=== PATIENT | female | born 1995 | race Two or more races ===

== ENCOUNTER 2023-05-31 16:14 | Inpatient (IN) | payer MEDICAID, OTHER ==
[~2023-05-31] VITALS: Ht 170.2 cm; Wt 65.0 kg
[2023-05-31] MEDS ORDERED: SODIUM CHLORIDE 0.9% 1,000 ML IV ONE (16:30)
[2023-05-31] MEDS ORDERED: HYDROmorphone HCL 2 MG/ML VL/or syr IV ONE ×2 (16:30→18:15)
[2023-05-31] MEDS ORDERED: InsuLIN R (HUMAN) 100 UNITS in SODIUM CHL 0.9% 99 ML IV SCH (16:30)
[2023-05-31] MEDS ORDERED: PANTOPRAZOLE 40 MG/10 ML VIAL INJ IV ONE (16:30)
[2023-05-31] MEDS ORDERED: DEXTROSE (50%) 50ML SYRG IV PRN ×2 (16:30→21:15)
[2023-05-31] MEDS ORDERED: INSULIN LANTUS (GLARGINE) 1 /0.01ml (100units/ml) SC ONE (16:30)
[2023-05-31] MEDS ORDERED: PROCHLORPERAZINE EDISYLATE 5 MG/ML 2ML VIAL IV ONE (16:30)
[2023-05-31 17:18] LABS: Urine Bacteria NONE SEEN /hpf (None Seen); Urine Blood Negative /uL (Negative); Urine Clarity Clear (Clear); Urine Color Colorless (Yellow); Urine Protein, UAD Negative (Negative); Urine Specific Gravity 1.032 (1.001-1.035); Urine Urobilinogen Normal (Negative); Urine WBC <1 /hpf (0 - 5)
[2023-05-31 17:27] LABS: Amphetamine Screen, Urine Neg (NEGATIVE); Barbiturate Scree,Urine Neg (NEGATIVE); Benzodiazephine Screen, Urine Neg (NEGATIVE); Cannabinoid Screen, Urine Pos (NEGATIVE); Cocaine Screen, Urine Neg (NEGATIVE); Opiate Scree,Urine Neg (NEGATIVE); Phencyclidine Screen, Urine Neg (NEGATIVE)
[2023-05-31 18:11] LABS: Eosinophils # (auto) 0 10 ^3/uL (0-0.8); Red Cell Distribution Width 14.5 % (11.8-14.3)
[2023-05-31 18:12] LABS: Basophils # (auto) 0 10 ^3/uL (0-0.2); Basophils % (auto) 0.2 % (0.0-2.0); Hematocrit 34.6 % (36.0-46.0); Hemoglobin 11.3 g/dL (12.2-16.2); Lymphocytes # (auto) 0.9 10 ^3/uL (0.4-5.4); Lymphocytes % (auto) 9.8 % (10.0-50.0); Mean Corpuscular Hemoglobin 26.3 pg (28.0-32.0); Mean Corpuscular Hgb Conc. 32.7 g/dL (32.0-36.0); Mean Corpuscular Volume 80.5 fL (80.0-100.0); Monocytes # (auto) 0.2 10 ^3/uL (0-1.3); Monocytes % (auto) 2.2 % (0.0-12.0); Neutrophils % (auto) 87.8 % (37.0-80.0); White Blood Cell 9.1 10^3/uL (4.4-10.8)
[2023-05-31] MEDS ORDERED: diphenhdrAMINE HCL 50 MG/1 ML VL IV ONE (18:15)
[2023-05-31 18:27] LABS: Alanine Aminotransferase 10 U/L (7-40); Albumin 4.4 g/dL (3.2-4.8); Alkaline Phosphatase 105 U/L (46-116); Anion Gap 10.3 (5-15); Aspartate Aminotransferase < 8 U/L (13-40); BUN/Creatinine Ratio 12.5 (10.0-20.0); Blood Urea Nitrogen 8 mg/dL (9-23); Calcium 8.8 mg/dL (8.7-10.4); Carbon Dioxide 21.7 mmol/L (20-30); Chloride 100 mmol/L (98-107); Glucose 358 mg/dL (74-106); Potassium 3.7 mmol/L (3.5-5.1); Sodium 132 mmol/L (136-145)
[2023-05-31 18:28] LABS: Bilirubin, Total 0.8 mg/dL (0.2-1.0); Total Protein 7.1 g/dL (5.7-8.2)
[2023-05-31] MEDS: ACCU-CHEK COMFORT CURVE STRIP VI SCH ×3 (18:32→19:37)
[2023-05-31 18:37] LABS: Base Excess -5.4 mmol/L (-2.0-2.0)
[2023-05-31 18:41] VITALS: PULSE 98; RESP 20; O2SAT 100
[2023-05-31 19:30] VITALS: PULSE 85; RESP 20; O2SAT 100
[2023-05-31 22:05] VITALS: PULSE 90; RESP 21; O2SAT 95
[2023-05-31] MEDS: METOCLOPRAMIDE HCL 5MG/ml INJ 2ml VIAL IV SCH (22:07)
[2023-05-31] MEDS: MORPHINE SULFATE INJ 2 MG/ml SYRG IV PRN (22:21)
[2023-06-01] VITALS (8 sets, daily range): BP systolic 105–124; BP diastolic 61–81; PULSE 79–122; RESP 16–22; TEMP 97.4–98.6; O2SAT 96–100
[2023-06-01] MEDS: ACCU-CHEK COMFORT CURVE STRIP VI SCH ×7 (01:21→23:47)
[2023-06-01] MEDS: InsuLIN REG 1unit/0.01ml Soln (100units/ml) SC SCH ×7 (01:24→23:47)
[2023-06-01] MEDS ORDERED: KETOROLAC TROMETH 30 MG/ML 1ML VIAL IV ONE (02:15)
[2023-06-01] MEDS: MORPHINE SULFATE INJ 2 MG/ml SYRG IV PRN ×2 (02:24→09:02)
[2023-06-01] MEDS: METOCLOPRAMIDE HCL 5MG/ml INJ 2ml VIAL IV SCH ×3 (05:16→22:18)
[2023-06-01 06:28] LABS: Basophils # (auto) 0 10 ^3/uL (0-0.2); Basophils % (auto) 0.4 % (0.0-2.0); Eosinophils # (auto) 0 10 ^3/uL (0-0.8); Eosinophils % (auto) 0.4 % (0.0-7.0); Hematocrit 36.8 % (36.0-46.0); Hemoglobin 12.3 g/dL (12.2-16.2); Lymphocytes # (auto) 3.8 10 ^3/uL (0.4-5.4); Lymphocytes % (auto) 40.2 % (10.0-50.0); Mean Corpuscular Hemoglobin 26.3 pg (28.0-32.0); Mean Corpuscular Hgb Conc. 33.5 g/dL (32.0-36.0); Mean Corpuscular Volume 78.7 fL (80.0-100.0); Monocytes # (auto) 0.6 10 ^3/uL (0-1.3); Monocytes % (auto) 6.7 % (0.0-12.0); Neutrophils # (auto) 4.9 10 ^3/uL (1.6-8.6); Neutrophils % (auto) 52.3 % (37.0-80.0); Nucleated Red Blood Cells % 0.1 %; Red Blood Cells 4.67 10^6/uL (4.0-5.20); Red Cell Distribution Width 14.7 % (11.8-14.3); White Blood Cell 9.4 10^3/uL (4.4-10.8)
[2023-06-01 06:49] LABS: Albumin 4.2 g/dL (3.2-4.8); Alkaline Phosphatase 98 U/L (46-116); Anion Gap 7.5 (5-15); Aspartate Aminotransferase < 8 U/L (13-40); BUN/Creatinine Ratio 8.6 (10.0-20.0); Blood Urea Nitrogen 5 mg/dL (9-23); Calcium 9.3 mg/dL (8.7-10.4); Carbon Dioxide 24.5 mmol/L (20-30); Chloride 104 mmol/L (98-107); Glucose 148 mg/dL (74-106); Potassium 3.5 mmol/L (3.5-5.1); Sodium 136 mmol/L (136-145)
[2023-06-01 06:50] LABS: Alanine Aminotransferase < 9 U/L (7-40); Bilirubin, Total 0.6 mg/dL (0.2-1.0); Total Protein 6.9 g/dL (5.7-8.2)
[2023-06-01] MEDS: PANTOPRAZOLE 40 MG/10 ML VIAL INJ IV SCH (09:01)
[2023-06-01] MEDS ORDERED: INSULIN LANTUS (GLARGINE) 1 /0.01ml (100units/ml) SC SCH (10:00)
[2023-06-01 11:19] LABS: Hepatitis B Surface Antigen Negative (Negative)
[2023-06-01 11:41] LABS: Hepatitis C Antibody Negative (Negative)
[2023-06-01] MEDS ORDERED: diphenhdrAMINE HCL 50 MG/1 ML VL IM ONE (12:45)
[2023-06-01] MEDS ORDERED: RIVAROXABAN 15 MG TAB PO SCH (18:00)
[2023-06-01] MEDS ORDERED: diphenhdrAMINE HCL 25 MG CAP PO ONE (23:00)
[2023-06-02] MEDS: InsuLIN REG 1unit/0.01ml Soln (100units/ml) SC SCH ×4 (04:00→17:00)
[2023-06-02] MEDS: ACCU-CHEK COMFORT CURVE STRIP VI SCH ×4 (04:16→17:00)
[2023-06-02 05:00] VITALS: BP 112/69; PULSE 63; RESP 18; TEMP 98.1; O2SAT 97
[2023-06-02] MEDS: MORPHINE SULFATE INJ 2 MG/ml SYRG IV PRN ×2 (05:18→09:13)
[2023-06-02] MEDS: ONDANSETRON HCL 4 MG/2 ML VIAL IV PRN ×2 (05:20→09:12)
[2023-06-02] MEDS: METOCLOPRAMIDE HCL 5MG/ml INJ 2ml VIAL IV SCH ×2 (05:52→14:00)
[2023-06-02] MEDS: PANTOPRAZOLE 40 MG/10 ML VIAL INJ IV SCH (07:33)
[2023-06-02 07:48] VITALS: RESP 20
[2023-06-02 08:39] VITALS: BP 148/93; PULSE 125; RESP 20; TEMP 97.6; O2SAT 97
[2023-06-02] MEDS ORDERED: METO-281 PO (10:16)
[2023-06-02 11:35] LABS: Basophils # (auto) 0 10 ^3/uL (0-0.2); Eosinophils # (auto) 0 10 ^3/uL (0-0.8); Hemoglobin 11.8 g/dL (12.2-16.2); Lymphocytes # (auto) 1.6 10 ^3/uL (0.4-5.4); Monocytes # (auto) 0.4 10 ^3/uL (0-1.3); White Blood Cell 8.6 10^3/uL (4.4-10.8)
[2023-06-02 11:36] LABS: Basophils % (auto) 0.1 % (0.0-2.0); Hematocrit 36.4 % (36.0-46.0); Lymphocytes % (auto) 18.5 % (10.0-50.0); Mean Corpuscular Hemoglobin 25.7 pg (28.0-32.0); Mean Corpuscular Hgb Conc. 32.3 g/dL (32.0-36.0); Mean Corpuscular Volume 79.6 fL (80.0-100.0); Neutrophils # (auto) 6.6 10 ^3/uL (1.6-8.6); Neutrophils % (auto) 76.4 % (37.0-80.0); Red Blood Cells 4.57 10^6/uL (4.0-5.20); Red Cell Distribution Width 14.5 % (11.8-14.3)
[2023-06-02 11:56] LABS: Anion Gap 11.4 (5-15); Calcium 8.9 mg/dL (8.5-10.1); Carbon Dioxide 21.6 mmol/L (20-30); Chloride 102 mmol/L (98-107); Potassium 3.2 mmol/L (3.5-5.1); Sodium 135 mmol/L (136-145)
[2023-06-02 12:02] LABS: Blood Urea Nitrogen 7 mg/dL (9-23); Glucose 128 mg/dL (74-106)
[2023-06-02 12:03] LABS: BUN/Creatinine Ratio 11.1 (10.0-20.0)
[2023-06-02 12:57] VITALS: BP 158/89; PULSE 116; RESP 20; TEMP 98; O2SAT 100
[2023-06-02] MEDS ORDERED: INSLISPI SC (12:59)
[2023-06-02 16:58] VITALS: BP 129/93; PULSE 118; RESP 21; TEMP 97.6; O2SAT 100
== END 2023-06-02 18:24 | disposition home or self-care (01) | DRG 48 ==
LOC: ER 16:14 → EDBD 16:14 → OVERFLOW 21:08 → WEST WING 23:49
PROVIDERS: ADMIT Internal Medicine Pulmonary Disease
DX: E10.43 Type 1 diabetes mellitus with diabetic autonomic (poly)neuropathy (principal); E10.65 Type 1 diabetes mellitus with hyperglycemia; K31.84 Gastroparesis; F12.90 Cannabis use, unspecified, uncomplicated; F19.10 Other psychoactive substance abuse, uncomplicated; R11.10 Vomiting, unspecified
CPT/HCPCS: 36415; 76705; 80048; 80053; 80307; 81001; 82010; 82962; 83036; 85025; 86803; 87340; 96365; 96366; 96375; C9113; G0378; J1815; J1885; J2405

== ENCOUNTER 2023-06-27 14:10 | Inpatient (IN) | payer MEDICAID ==
[~2023-06-27] VITALS: Ht 167.6 cm; Wt 68.6 kg
[~2023-06-27 14:10] MED LIST: INSLISPI SC; METO-281 PO
[2023-06-27] MEDS ORDERED: PROMETHAZINE HCL 25 MG/ML 1ML IV ONE (14:30)
[2023-06-27] MEDS ORDERED: SODIUM CHLORIDE 0.9% 1,000 ML IV ONE ×2 (14:30)
[2023-06-27] MEDS ORDERED: MORPHINE SULFATE 4 MG/ML SYR/VIAL IV ONE (14:30)
[2023-06-27 15:35] LABS: Basophils # (auto) 0 10 ^3/uL (0-0.2); Basophils % (auto) 0.1 % (0.0-2.0); Eosinophils # (auto) 0 10 ^3/uL (0-0.8); Hematocrit 36.4 % (36.0-46.0); Hemoglobin 11.7 g/dL (12.2-16.2); Lymphocytes # (auto) 0.7 10 ^3/uL (0.4-5.4); Lymphocytes % (auto) 4.7 % (10.0-50.0); Mean Corpuscular Hemoglobin 25.6 pg (28.0-32.0); Mean Corpuscular Hgb Conc. 32.2 g/dL (32.0-36.0); Mean Corpuscular Volume 79.5 fL (80.0-100.0); Monocytes # (auto) 0.8 10 ^3/uL (0-1.3); Monocytes % (auto) 5.1 % (0.0-12.0); Neutrophils # (auto) 13.4 10 ^3/uL (1.6-8.6); Neutrophils % (auto) 90.1 % (37.0-80.0); Nucleated Red Blood Cells % 0.1 %; Red Blood Cells 4.57 10^6/uL (4.0-5.20); Red Cell Distribution Width 14.5 % (11.8-14.3); White Blood Cell 14.8 10^3/uL (4.4-10.8)
[2023-06-27 15:53] LABS: Alanine Aminotransferase 17 U/L (7-40); Albumin 4.6 g/dL (3.2-4.8); Alkaline Phosphatase 128 U/L (46-116); Anion Gap 12 (5-15); Aspartate Aminotransferase 9 U/L (13-40); BUN/Creatinine Ratio 13.8 (10.0-20.0); Bilirubin, Total 0.7 mg/dL (0.2-1.0); Blood Urea Nitrogen 11 mg/dL (9-23); Calcium 9.4 mg/dL (8.7-10.4); Carbon Dioxide 19 mmol/L (20-30); Chloride 105 mmol/L (98-107); Glucose 390 mg/dL (74-106); Potassium 4.1 mmol/L (3.5-5.1); Sodium 136 mmol/L (136-145); Total Protein 7.2 g/dL (5.7-8.2)
[2023-06-27 15:59] VITALS: PULSE 120; RESP 20; O2SAT 95
[2023-06-27 16:17] LABS: Urine Bacteria FEW /hpf (None Seen); Urine Blood Negative /uL (Negative); Urine Clarity Clear (Clear); Urine Mucus FEW (None Seen); Urine Protein, UAD Negative (Negative); Urine Specific Gravity 1.037 (1.001-1.035); Urine Urobilinogen Normal (Negative); Urine WBC 1 /hpf (0 - 5)
[2023-06-27 16:18] LABS: Urine Color STRAW (Yellow)
[2023-06-27 16:25] LABS: Amphetamine Screen, Urine Neg (NEGATIVE); Barbiturate Scree,Urine Neg (NEGATIVE); Benzodiazephine Screen, Urine Neg (NEGATIVE); Cannabinoid Screen, Urine Pos (NEGATIVE); Cocaine Screen, Urine Neg (NEGATIVE); Opiate Scree,Urine Neg (NEGATIVE); Phencyclidine Screen, Urine Neg (NEGATIVE)
[2023-06-27] MEDS ORDERED: PROMETHAZINE HCL 25 MG/ML 1ML IM ONE (17:00)
[2023-06-27] MEDS ORDERED: MORPHINE SULFATE INJ 2 MG/ml SYRG IM ONE (17:00)
[2023-06-27] MEDS ORDERED: diphenhdrAMINE HCL 50 MG/1 ML VL IV ONE (17:45)
[2023-06-27] MEDS ORDERED: ACETAMINOPHEN 325 MG TAB PO PRN (17:45)
[2023-06-27] MEDS ORDERED: NITROGLYCERIN 0.4 MG SL TAB SL PRN (17:45)
[2023-06-27] MEDS ORDERED: MORPHINE SULFATE INJ 2 MG/ml SYRG IV PRN (17:45)
[2023-06-27] MEDS ORDERED: DEXTROSE (50%) 50ML SYRG IV PRN (17:45)
[2023-06-27] MEDS ORDERED: DOCUSATE SOD 100 MG CAP PO PRN (17:45)
[2023-06-27] MEDS: SODIUM CHLORIDE 0.9% 1,000 ML IV SCH (18:44)
[2023-06-27 20:05] VITALS: PULSE 120; RESP 25; O2SAT 96
[2023-06-27] MEDS: METOCLOPRAMIDE HCL 5MG/ml INJ 2ml VIAL IV PRN (20:06)
[2023-06-27] MEDS: MORPHINE SULFATE INJ 2 MG/ml SYRG IV PRN (20:10)
[2023-06-27] MEDS: ACCU-CHEK COMFORT CURVE STRIP VI SCH (20:26)
[2023-06-27] MEDS: InsuLIN REG 1unit/0.01ml Soln (100units/ml) SC SCH (20:27)
[2023-06-27] MEDS: HYDROcodone-ACET 5/325MG TAB PO PRN (22:12)
[2023-06-28] MEDS: InsuLIN REG 1unit/0.01ml Soln (100units/ml) SC SCH ×6 (00:02→20:00)
[2023-06-28] MEDS: ACCU-CHEK COMFORT CURVE STRIP VI SCH ×6 (00:02→20:00)
[2023-06-28] MEDS: ONDANSETRON HCL 4 MG/2 ML VIAL IV PRN ×3 (00:03→20:26)
[2023-06-28] MEDS: MORPHINE SULFATE INJ 2 MG/ml SYRG IV PRN ×4 (00:04→20:27)
[2023-06-28] MEDS: SODIUM CHLORIDE 0.9% 1,000 ML IV SCH ×3 (04:08→23:45)
[2023-06-28] MEDS: METOCLOPRAMIDE HCL 5MG/ml INJ 2ml VIAL IV PRN (04:09)
[2023-06-28 05:27] LABS: Basophils # (auto) 0.1 10 ^3/uL (0-0.2); Eosinophils # (auto) 0 10 ^3/uL (0-0.8); Lymphocytes % (auto) 15.7 % (10.0-50.0); Monocytes # (auto) 0.9 10 ^3/uL (0-1.3)
[2023-06-28 05:29] LABS: Basophils % (auto) 0.5 % (0.0-2.0); Hematocrit 35.8 % (36.0-46.0); Hemoglobin 11.9 g/dL (12.2-16.2); Mean Corpuscular Hemoglobin 26.1 pg (28.0-32.0); Mean Corpuscular Hgb Conc. 33.2 g/dL (32.0-36.0); Mean Corpuscular Volume 78.7 fL (80.0-100.0); Monocytes % (auto) 7.3 % (0.0-12.0); Neutrophils # (auto) 9.6 10 ^3/uL (1.6-8.6); Neutrophils % (auto) 76.5 % (37.0-80.0); Nucleated Red Blood Cells % 0.1 %; Red Blood Cells 4.55 10^6/uL (4.0-5.20); Red Cell Distribution Width 14.7 % (11.8-14.3); White Blood Cell 12.6 10^3/uL (4.4-10.8)
[2023-06-28 05:44] LABS: Alanine Aminotransferase 15 U/L (7-40); Albumin 4.2 g/dL (3.2-4.8); Alkaline Phosphatase 108 U/L (46-116); Anion Gap 7 (5-15); Aspartate Aminotransferase 12 U/L (13-40); BUN/Creatinine Ratio 13.1 (10.0-20.0); Blood Urea Nitrogen 8 mg/dL (9-23); Carbon Dioxide 25 mmol/L (20-30); Chloride 105 mmol/L (98-107); Glucose 168 mg/dL (74-106); Potassium 3.7 mmol/L (3.5-5.1); Sodium 137 mmol/L (136-145)
[2023-06-28 05:45] LABS: Bilirubin, Total 0.8 mg/dL (0.2-1.0); Total Protein 6.8 g/dL (5.7-8.2)
[2023-06-28 07:30] VITALS: PULSE 78; RESP 16; O2SAT 100
[2023-06-28 09:30] VITALS: RESP 15; O2SAT 98
[2023-06-28] MEDS ORDERED: METOCLOPRAMIDE HCL 5MG/ml INJ 2ml VIAL IV ONE (09:30)
[2023-06-28] MEDS ORDERED: KETOROLAC TROMETH 30 MG/ML 1ML VIAL IV ONE (09:30)
[2023-06-28] MEDS: cefTRIAXone 1GM/50ML D5W 50 ML IV SCH (13:42)
[2023-06-28] MEDS: metroNIDAZOLE 500MG/100ML 100 ML IV SCH ×2 (14:00→21:24)
[2023-06-28 14:02] VITALS: BP 114/78; PULSE 86; RESP 18; TEMP 98.1; O2SAT 100
[2023-06-28 17:00] VITALS: BP 106/44; PULSE 69; RESP 22; TEMP 98.4; O2SAT 99
[2023-06-28 19:30] VITALS: PULSE 84; RESP 16; O2SAT 100
[2023-06-28] MEDS ORDERED: diphenhdrAMINE HCL 25 MG CAP PO ONE (21:00)
[2023-06-28 22:00] VITALS: BP 120/74; PULSE 102; RESP 18; TEMP 98.1; O2SAT 100
[2023-06-29] MEDS: ONDANSETRON HCL 4 MG/2 ML VIAL IV PRN ×3 (00:36→09:03)
[2023-06-29] MEDS: MORPHINE SULFATE INJ 2 MG/ml SYRG IV PRN ×5 (00:37→20:19)
[2023-06-29] MEDS: METOCLOPRAMIDE HCL 5MG/ml INJ 2ml VIAL IV PRN (01:19)
[2023-06-29] MEDS: ACCU-CHEK COMFORT CURVE STRIP VI SCH ×6 (04:00→20:28)
[2023-06-29 05:00] VITALS: BP 143/71; PULSE 122; RESP 23; TEMP 99; O2SAT 97
[2023-06-29] MEDS: InsuLIN REG 1unit/0.01ml Soln (100units/ml) SC SCH ×6 (05:32→20:00)
[2023-06-29] MEDS: metroNIDAZOLE 500MG/100ML 100 ML IV SCH ×3 (05:52→22:10)
[2023-06-29] MEDS: cefTRIAXone 1GM/50ML D5W 50 ML IV SCH (09:02)
[2023-06-29] MEDS: HYDROcodone-ACET 5/325MG TAB PO PRN (10:28)
[2023-06-29] MEDS: SODIUM CHLORIDE 0.9% 1,000 ML IV SCH ×2 (10:36→20:22)
[2023-06-29 13:00] VITALS: BP 109/58; PULSE 87; RESP 19; TEMP 97.8; O2SAT 98
[2023-06-29] MEDS: PROMETHAZINE HCL 25 MG/ML 1ML IV PRN ×2 (15:05→23:42)
[2023-06-29] MEDS: diphenhdrAMINE HCL 50 MG/1 ML VL IV PRN ×2 (15:19→22:10)
[2023-06-29 17:02] VITALS: BP 158/92; PULSE 104; RESP 18; TEMP 98; O2SAT 97
[2023-06-29 20:00] VITALS: PULSE 72
[2023-06-29 22:00] VITALS: BP 129/79; PULSE 89; RESP 19; TEMP 99.6; O2SAT 97
[2023-06-30] MEDS: ACCU-CHEK COMFORT CURVE STRIP VI SCH ×5 (00:28→16:00)
[2023-06-30] MEDS: MORPHINE SULFATE INJ 2 MG/ml SYRG IV PRN ×4 (00:29→15:41)
[2023-06-30] MEDS: InsuLIN REG 1unit/0.01ml Soln (100units/ml) SC SCH ×5 (00:34→16:00)
[2023-06-30] MEDS: diphenhdrAMINE HCL 50 MG/1 ML VL IV PRN ×2 (04:13→11:33)
[2023-06-30 05:00] VITALS: BP 146/97; PULSE 116; RESP 20; TEMP 100; O2SAT 95
[2023-06-30] MEDS: METOCLOPRAMIDE HCL 5MG/ml INJ 2ml VIAL IV PRN (05:09)
[2023-06-30] MEDS: metroNIDAZOLE 500MG/100ML 100 ML IV SCH ×2 (05:09→15:49)
[2023-06-30] MEDS: SODIUM CHLORIDE 0.9% 1,000 ML IV SCH ×2 (05:45→08:38)
[2023-06-30 07:00] VITALS: PULSE 124; RESP 24; O2SAT 96
[2023-06-30 08:00] VITALS: PULSE 124; RESP 24; O2SAT 96
[2023-06-30] MEDS: cefTRIAXone 1GM/50ML D5W 50 ML IV SCH (08:38)
[2023-06-30 09:00] VITALS: BP 151/84; PULSE 124; RESP 22; TEMP 98.8; O2SAT 98
[2023-06-30 13:00] VITALS: BP 159/99; PULSE 123; RESP 24; TEMP 98.8; O2SAT 96
[2023-06-30 14:09] LABS: Alanine Aminotransferase 13 U/L (7-40); Alkaline Phosphatase 84 U/L (46-116); Calcium 8.6 mg/dL (8.5-10.1); Chloride 105 mmol/L (98-107); Triglycerides 74 mg/dL (< 150)
[2023-06-30 14:10] LABS: Anion Gap 15 (5-15); Aspartate Aminotransferase 20 U/L (13-40); Bilirubin, Total 0.6 mg/dL (0.2-1.0); Carbon Dioxide 17 mmol/L (20-30); Cholesterol 164 mg/dL (< 200); Glucose 141 mg/dL (74-106); HDL Cholesterol 50 mg/dL (40-59); LDL Cholesterol 106 mg/dL (< 100); Potassium 3.4 mmol/L (3.5-5.1); Sodium 137 mmol/L (136-145); Total Protein 6.6 g/dL (5.7-8.2)
[2023-06-30 14:12] LABS: BUN/Creatinine Ratio 7.9 (10.0-20.0); Blood Urea Nitrogen < 5 mg/dL (9-23)
[2023-06-30 14:24] LABS: Lipase 41 U/L (12-53); Magnesium 1.6 mg/dL (1.6-2.6)
[2023-06-30 16:40] VITALS: BP 153/87; PULSE 121; RESP 20; TEMP 98.8; O2SAT 99
== END 2023-06-30 17:47 | disposition home or self-care (01) | DRG 48 ==
LOC: ER 14:10 → EDBD 14:10 → OVERFLOW 17:46 → WEST WING 06-28 13:50
PROVIDERS: ADMIT Nurse Practitioner Family; ATTEND Internal Medicine Geriatric Medicine
PROC: 05HF33Z Insertion of Infusion Device into Left Cephalic Vein, Percutaneous Approach (ICD-10-PCS; principal; 2023-06-29)
PROC: B54NZZA Ultrasonography of Left Upper Extremity Veins, Guidance (ICD-10-PCS; 2023-06-29)
DX: E10.43 Type 1 diabetes mellitus with diabetic autonomic (poly)neuropathy (principal); E10.65 Type 1 diabetes mellitus with hyperglycemia; K31.84 Gastroparesis; Z79.4 Long term (current) use of insulin; R82.4 Acetonuria
CPT/HCPCS: 36415; 80053; 80061; 80307; 81001; 82962; 83690; 83735; 85025; 96361; 96374; 96375; 96376; G0378; J0696; J1815; J1885; J2405; J3490

== ENCOUNTER 2023-07-30 21:25 | Inpatient (IN) | payer MEDICAID ==
[~2023-07-30] VITALS: Ht 170.2 cm; Wt 68.0 kg
[2023-07-30] MEDS ORDERED: ONDANSETRON HCL 4 MG/2 ML VIAL IM ONE (23:00)
[2023-07-30] MEDS ORDERED: HYDROmorphone HCL 2 MG/ML VL/or syr IM ONE (23:00)
[2023-07-30 23:16] LABS: Hemoglobin 13.5 g/dL (12.2-16.2)
[2023-07-30 23:18] LABS: Basophils # (auto) 0.1 10 ^3/uL (0-0.2); Basophils % (auto) 0.3 % (0.0-2.0); Eosinophils # (auto) 0 10 ^3/uL (0-0.8); Hematocrit 42.4 % (36.0-46.0); Lymphocytes # (auto) 1.8 10 ^3/uL (0.4-5.4); Lymphocytes % (auto) 9.4 % (10.0-50.0); Mean Corpuscular Hemoglobin 25.5 pg (28.0-32.0); Mean Corpuscular Hgb Conc. 31.7 g/dL (32.0-36.0); Mean Corpuscular Volume 80.5 fL (80.0-100.0); Monocytes # (auto) 1.2 10 ^3/uL (0-1.3); Monocytes % (auto) 6.5 % (0.0-12.0); Neutrophils # (auto) 15.9 10 ^3/uL (1.6-8.6); Neutrophils % (auto) 83.8 % (37.0-80.0); Red Blood Cells 5.27 10^6/uL (4.0-5.20); Red Cell Distribution Width 15.4 % (11.8-14.3)
[2023-07-30 23:34] LABS: Alanine Aminotransferase 133 U/L (7-40); Alkaline Phosphatase 108 U/L (46-116); Anion Gap 17 (5-15); Aspartate Aminotransferase 164 U/L (13-40); BUN/Creatinine Ratio 13.3 (10.0-20.0); Bilirubin, Total 1.5 mg/dL (0.2-1.0); Blood Alcohol < 3.0 mg/dL (<10); Blood Urea Nitrogen 10 mg/dL (9-23); Calcium 9.6 mg/dL (8.7-10.4); Carbon Dioxide 17 mmol/L (20-30); Chloride 95 mmol/L (98-107); Glucose 251 mg/dL (74-106); Lipase 41 U/L (12-53); Potassium 3.4 mmol/L (3.5-5.1); Sodium 129 mmol/L (136-145); Total Protein 8.2 g/dL (5.7-8.2)
[2023-07-31] MEDS ORDERED: InsuLIN REG 1unit/0.01ml Soln (100units/ml) IV ONE (07:15)
[2023-07-31] MEDS ORDERED: HYDROmorphone HCL 2 MG/ML VL/or syr IV ONE ×2 (07:15→18:30)
[2023-07-31] MEDS ORDERED: metroNIDAZOLE 500MG/100ML 100 ML IV ONE (07:15)
[2023-07-31] MEDS ORDERED: cefTRIAXone 1GM/50ML D5W 50 ML IV ONE (07:15)
[2023-07-31] MEDS ORDERED: ONDANSETRON HCL 4 MG/2 ML VIAL IV ONE (07:15)
[2023-07-31] MEDS ORDERED: LACTATED RINGER'S 1,800 ML IV ONE (07:15)
[2023-07-31 08:30] VITALS: PULSE 123; RESP 25; O2SAT 99
[2023-07-31 08:53] LABS: Amphetamine Screen, Urine Neg (NEGATIVE); Barbiturate Scree,Urine Neg (NEGATIVE); Benzodiazephine Screen, Urine Pos (NEGATIVE); Cannabinoid Screen, Urine Pos (NEGATIVE); Cocaine Screen, Urine Neg (NEGATIVE); Opiate Scree,Urine Neg (NEGATIVE); Phencyclidine Screen, Urine Neg (NEGATIVE); Urine Bacteria NONE SEEN /hpf (None Seen); Urine Blood Negative /uL (Negative); Urine Clarity Clear (Clear); Urine Color Yellow (Yellow); Urine Protein, UAD 1+ (Negative); Urine Specific Gravity 1.027 (1.001-1.035); Urine Urobilinogen Normal (Negative); Urine WBC 25 /hpf (0 - 5); Urine pH 5.5 (5.0-8.0)
[2023-07-31] MEDS ORDERED: INSULIN LANTUS (GLARGINE) 1 /0.01ml (100units/ml) SC ONE (10:00)
[2023-07-31] MEDS ORDERED: SODIUM CHLORIDE 0.9% 2,000 ML IV ONE (10:00)
[2023-07-31] MEDS ORDERED: PROMETHAZINE HCL 25 MG RECT SUPP PR PRN (10:00)
[2023-07-31] MEDS ORDERED: DEXTROSE (50%) 50ML SYRG IV PRN ×3 (10:00→11:15)
[2023-07-31] MEDS ORDERED: PROMETHAZINE HCL 25 MG RECT SUPP PR ONE (10:00)
[2023-07-31] MEDS ORDERED: ACCU-CHEK COMFORT CURVE STRIP VI SCH (10:30)
[2023-07-31] MEDS ORDERED: POTASSIUM EFFERVESENT TAB 25 MEQ PO ONE (10:30)
[2023-07-31 10:36] LABS: Base Excess -6.7 mmol/L (-2.0-2.0)
[2023-07-31] MEDS: PANTOPRAZOLE 40 MG/10 ML VIAL INJ IV SCH (10:52)
[2023-07-31] MEDS ORDERED: POTASSIUM CHL 20MEQ/100ML 100 ML IV ONE (11:15)
[2023-07-31 11:42] LABS: Chloride 98 mmol/L (98-107); Potassium 3.5 mmol/L (3.5-5.1); Sodium 131 mmol/L (136-145)
[2023-07-31 11:43] LABS: Anion Gap 18 (5-15); Carbon Dioxide 15 mmol/L (20-30)
[2023-07-31 11:44] LABS: Calcium 9.1 mg/dL (8.5-10.1)
[2023-07-31 11:48] LABS: Blood Urea Nitrogen 15 mg/dL (9-23); Glucose 176 mg/dL (74-106)
[2023-07-31 11:50] LABS: Basophils # (auto) 0.1 10 ^3/uL (0-0.2); Basophils % (auto) 0.2 % (0.0-2.0); Eosinophils # (auto) 0 10 ^3/uL (0-0.8); Eosinophils % (auto) 0.1 % (0.0-7.0); Hematocrit 43.2 % (36.0-46.0); Lymphocytes # (auto) 1.9 10 ^3/uL (0.4-5.4); Lymphocytes % (auto) 8.8 % (10.0-50.0); Mean Corpuscular Hemoglobin 25.8 pg (28.0-32.0); Mean Corpuscular Hgb Conc. 32.3 g/dL (32.0-36.0); Mean Corpuscular Volume 79.8 fL (80.0-100.0); Monocytes # (auto) 1.5 10 ^3/uL (0-1.3); Monocytes % (auto) 6.8 % (0.0-12.0); Neutrophils # (auto) 18.5 10 ^3/uL (1.6-8.6); Neutrophils % (auto) 84.1 % (37.0-80.0); Nucleated Red Blood Cells % 0.1 %; Red Blood Cells 5.41 10^6/uL (4.0-5.20); Red Cell Distribution Width 15.3 % (11.8-14.3)
[2023-07-31 11:51] LABS: Phosphorus 4.1 mg/dL (2.4-5.1)
[2023-07-31] MEDS: DICYCLOMINE HCL 10 MG CAP PO SCH ×3 (12:00→22:00)
[2023-07-31 12:20] LABS: Magnesium 1.7 mg/dL (1.6-2.6)
[2023-07-31] MEDS ORDERED: DICYCLOMINE HCL (10MG/ML) 2 ML AMPULE IM ONE (12:45)
[2023-07-31] MEDS: METOCLOPRAMIDE HCL 5MG/ml INJ 2ml VIAL IV SCH ×3 (12:52→23:35)
[2023-07-31] MEDS: ACCU-CHEK COMFORT CURVE STRIP VI SCH ×4 (12:52→23:38)
[2023-07-31] MEDS: InsuLIN REG 1unit/0.01ml Soln (100units/ml) SC SCH ×4 (12:53→23:38)
[2023-07-31] MEDS: SODIUM CHLORIDE 0.9% 1,000 ML IV SCH ×2 (14:42→22:13)
[2023-07-31] MEDS: diphenhdrAMINE HCL 50 MG/1 ML VL IV PRN ×2 (14:58→22:13)
[2023-07-31] MEDS: HYDROmorphone HCL 2 MG/ML VL/or syr IV PRN ×2 (15:00→22:00)
[2023-07-31 16:40] LABS: Chloride 103 mmol/L (98-107); Potassium 3.6 mmol/L (3.5-5.1); Sodium 133 mmol/L (136-145)
[2023-07-31 16:41] LABS: Anion Gap 7 (5-15); Carbon Dioxide 23 mmol/L (20-30)
[2023-07-31 16:46] LABS: Glucose 152 mg/dL (74-106)
[2023-07-31 16:47] LABS: BUN/Creatinine Ratio 11.3 (10.0-20.0); Blood Urea Nitrogen 7 mg/dL (9-23)
[2023-07-31 19:45] VITALS: PULSE 100; RESP 22
[2023-07-31] MEDS: ONDANSETRON HCL 4 MG/2 ML VIAL IV PRN (21:59)
[2023-07-31] MEDS: metroNIDAZOLE 500MG/100ML 100 ML IV SCH (22:12)
[2023-07-31 22:25] LABS: Chloride 103 mmol/L (98-107); Potassium 3.6 mmol/L (3.5-5.1); Sodium 134 mmol/L (136-145)
[2023-07-31 22:26] LABS: Anion Gap 11 (5-15); Calcium 8.7 mg/dL (8.7-10.4); Carbon Dioxide 20 mmol/L (20-30)
[2023-07-31 22:31] LABS: Blood Urea Nitrogen 7 mg/dL (9-23); Glucose 125 mg/dL (74-106)
[2023-07-31 23:09] VITALS: BP 114/78; PULSE 110; RESP 18; RESP 20; TEMP 98.7; O2SAT 100
[2023-08-01] VITALS (7 sets, daily range): BP systolic 117–135; BP diastolic 51–82; PULSE 83–119; RESP 17–20; TEMP 98–98.6; O2SAT 96–99
[2023-08-01] MEDS: HYDROmorphone HCL 2 MG/ML VL/or syr IV PRN ×5 (02:53→21:56)
[2023-08-01] MEDS: ONDANSETRON HCL 4 MG/2 ML VIAL IV PRN (02:54)
[2023-08-01] MEDS: InsuLIN REG 1unit/0.01ml Soln (100units/ml) SC SCH ×5 (04:00→20:00)
[2023-08-01] MEDS: ACCU-CHEK COMFORT CURVE STRIP VI SCH ×5 (04:29→20:33)
[2023-08-01] MEDS: diphenhdrAMINE HCL 50 MG/1 ML VL IV PRN ×3 (04:34→20:30)
[2023-08-01] MEDS: DICYCLOMINE HCL 10 MG CAP PO SCH ×4 (05:20→20:44)
[2023-08-01] MEDS: metroNIDAZOLE 500MG/100ML 100 ML IV SCH ×3 (05:26→20:44)
[2023-08-01] MEDS: METOCLOPRAMIDE HCL 5MG/ml INJ 2ml VIAL IV SCH ×3 (05:26→17:46)
[2023-08-01] MEDS: SODIUM CHLORIDE 0.9% 1,000 ML IV SCH ×3 (05:26→18:15)
[2023-08-01 07:16] LABS: Alanine Aminotransferase 963 U/L (7-40); Albumin 3.8 g/dL (3.2-4.8); Alkaline Phosphatase 76 U/L (46-116); Anion Gap 12 (5-15); BUN/Creatinine Ratio 9.8 (10.0-20.0); Bilirubin, Total 0.8 mg/dL (0.2-1.0); Blood Urea Nitrogen 6 mg/dL (9-23); Calcium 8.2 mg/dL (8.5-10.1); Carbon Dioxide 19 mmol/L (20-30); Chloride 104 mmol/L (98-107); Glucose 151 mg/dL (74-106); Potassium 3.5 mmol/L (3.5-5.1); Sodium 135 mmol/L (136-145)
[2023-08-01 07:17] LABS: Basophils # (auto) 0 10 ^3/uL (0-0.2); Basophils % (auto) 0.4 % (0.0-2.0); Eosinophils # (auto) 0 10 ^3/uL (0-0.8); Hemoglobin 11.2 g/dL (12.2-16.2); Lymphocytes # (auto) 1.1 10 ^3/uL (0.4-5.4); Mean Corpuscular Volume 79.9 fL (80.0-100.0); Monocytes # (auto) 0.8 10 ^3/uL (0-1.3)
[2023-08-01 07:18] LABS: Eosinophils % (auto) 0.2 % (0.0-7.0); Hematocrit 34.1 % (36.0-46.0); Lymphocytes % (auto) 11.6 % (10.0-50.0); Mean Corpuscular Hemoglobin 26.2 pg (28.0-32.0); Mean Corpuscular Hgb Conc. 32.8 g/dL (32.0-36.0); Monocytes % (auto) 8.8 % (0.0-12.0); Neutrophils # (auto) 7.2 10 ^3/uL (1.6-8.6); Red Blood Cells 4.27 10^6/uL (4.0-5.20); Red Cell Distribution Width 15.6 % (11.8-14.3); White Blood Cell 9.1 10^3/uL (4.4-10.8)
[2023-08-01 07:44] LABS: Aspartate Aminotransferase 987 U/L (13-40)
[2023-08-01] MEDS: PANTOPRAZOLE 40 MG/10 ML VIAL INJ IV SCH (09:19)
[2023-08-01] MEDS: cefTRIAXone 1GM/50ML D5W 50 ML IV SCH (09:19)
[2023-08-02] MEDS: METOCLOPRAMIDE HCL 5MG/ml INJ 2ml VIAL IV SCH ×3 (01:11→12:00)
[2023-08-02] MEDS: ACCU-CHEK COMFORT CURVE STRIP VI SCH ×4 (01:12→12:00)
[2023-08-02] MEDS: HYDROmorphone HCL 2 MG/ML VL/or syr IV PRN ×2 (02:19→06:23)
[2023-08-02] MEDS: SODIUM CHLORIDE 0.9% 1,000 ML IV SCH ×2 (02:19→07:55)
[2023-08-02] MEDS: diphenhdrAMINE HCL 50 MG/1 ML VL IV PRN (03:50)
[2023-08-02] MEDS: InsuLIN REG 1unit/0.01ml Soln (100units/ml) SC SCH ×4 (04:00→12:00)
[2023-08-02 05:00] VITALS: BP 124/82; PULSE 82; RESP 18; TEMP 98.3; O2SAT 100
[2023-08-02] MEDS: DICYCLOMINE HCL 10 MG CAP PO SCH ×2 (06:23→12:00)
[2023-08-02] MEDS: metroNIDAZOLE 500MG/100ML 100 ML IV SCH (06:33)
[2023-08-02 07:56] VITALS: BP 126/78; PULSE 85; RESP 19; TEMP 98.4; O2SAT 99
[2023-08-02 08:00] VITALS: PULSE 81
[2023-08-02 08:03] LABS: Basophils # (auto) 0 10 ^3/uL (0-0.2); Eosinophils # (auto) 0.1 10 ^3/uL (0-0.8); Hemoglobin 11.1 g/dL (12.2-16.2); Lymphocytes # (auto) 2.1 10 ^3/uL (0.4-5.4); Nucleated Red Blood Cells % 0.1 %; White Blood Cell 6.5 10^3/uL (4.4-10.8)
[2023-08-02 08:05] LABS: Basophils % (auto) 0.7 % (0.0-2.0); Eosinophils % (auto) 1.2 % (0.0-7.0); Hematocrit 35.4 % (36.0-46.0); Lymphocytes % (auto) 32.4 % (10.0-50.0); Mean Corpuscular Hgb Conc. 31.4 g/dL (32.0-36.0); Mean Corpuscular Volume 83.1 fL (80.0-100.0); Monocytes # (auto) 0.7 10 ^3/uL (0-1.3); Monocytes % (auto) 11.5 % (0.0-12.0); Neutrophils # (auto) 3.5 10 ^3/uL (1.6-8.6); Neutrophils % (auto) 54.2 % (37.0-80.0); Red Blood Cells 4.26 10^6/uL (4.0-5.20); Red Cell Distribution Width 15.7 % (11.8-14.3)
[2023-08-02 08:15] LABS: Chloride 103 mmol/L (98-107); Sodium 134 mmol/L (136-145)
[2023-08-02 08:16] LABS: Anion Gap 13 (5-15); Carbon Dioxide 18 mmol/L (20-30)
[2023-08-02 08:21] LABS: Glucose 133 mg/dL (74-106)
[2023-08-02 08:35] LABS: BUN/Creatinine Ratio 9.8 (10.0-20.0); Blood Urea Nitrogen < 5 mg/dL (9-23)
[2023-08-02 08:36] LABS: Potassium 2.8 mmol/L (3.5-5.1)
[2023-08-02 08:58] VITALS: BP 123/76; PULSE 82; RESP 17; TEMP 98.1; O2SAT 98
[2023-08-02] MEDS ORDERED: POTASSIUM CHL 20MEQ/100ML 100 ML IV ONE (09:00)
[2023-08-02] MEDS: cefTRIAXone 1GM/50ML D5W 50 ML IV SCH (09:04)
[2023-08-02 09:05] VITALS: BP 139/75; PULSE 78; RESP 18; TEMP 98.5; O2SAT 98
[2023-08-02] MEDS: PANTOPRAZOLE 40 MG/10 ML VIAL INJ IV SCH (09:45)
[2023-08-02] MEDS ORDERED: HYDROmorphone HCL 2 MG/ML VL/or syr IV PRN (11:00)
[2023-08-02 11:44] VITALS: TEMP 36.9
[2023-08-03 10:44] LABS: Hepatitis B Surface Antigen Negative (Negative)
[2023-08-03 11:06] LABS: Hepatitis C Antibody Negative (Negative)
== END 2023-08-02 12:45 | disposition home or self-care (01) | DRG 48 ==
LOC: ER 21:25 → EDBD 21:25 → TELE 07-31 10:14 → TELE-WESTW 07-31 21:25
PROVIDERS: ADMIT Nurse Practitioner Family; ATTEND Nurse Practitioner Family
DX: E10.43 Type 1 diabetes mellitus with diabetic autonomic (poly)neuropathy (principal); E87.1 Hypo-osmolality and hyponatremia; K31.84 Gastroparesis; E86.0 Dehydration; E87.6 Hypokalemia; R74.01 Elevation of levels of liver transaminase levels; N30.00 Acute cystitis without hematuria; R17 Unspecified jaundice; R29.6 Repeated falls; D72.829 Elevated white blood cell count, unspecified; F12.10 Cannabis abuse, uncomplicated; R79.89 Other specified abnormal findings of blood chemistry
CPT/HCPCS: 36415; 36600; 76830; 76856; 80048; 80053; 80307; 80320; 81001; 81025; 82010; 82805; 82962; 83690; 83735; 83880; 83930; 84100; 85025; 86803; 87081; 87340; C9113; G0378; J0696; J1815; J2405; J3480; J3490

== ENCOUNTER 2023-08-18 19:42 | Inpatient (IN) | payer MEDICAID ==
[~2023-08-18] VITALS: Ht 167.6 cm; Wt 59.1 kg
[2023-08-18] MEDS ORDERED: HALOPERIDOL LACTATE 5 MG/ML INJ VIAL IM ONE (21:30)
[2023-08-18 21:33] LABS: Urine Bacteria NONE SEEN /hpf (None Seen); Urine Blood Negative /uL (Negative); Urine Clarity Clear (Clear); Urine Color Colorless (Yellow); Urine Protein, UAD TRACE (Negative); Urine Specific Gravity 1.033 (1.001-1.035); Urine Urobilinogen Normal (Negative); Urine WBC 1 /hpf (0 - 5)
[2023-08-18] MEDS ORDERED: SODIUM CHLORIDE 0.9% 1,750 ML IV ONE (22:00)
[2023-08-18 22:52] LABS: Basophils # (auto) 0 10 ^3/uL (0-0.2); Eosinophils # (auto) 0 10 ^3/uL (0-0.8); Hematocrit 39.7 % (36.0-46.0); Hemoglobin 12.9 g/dL (12.2-16.2); Monocytes # (auto) 0.7 10 ^3/uL (0-1.3)
[2023-08-18 22:53] LABS: Basophils % (auto) 0.1 % (0.0-2.0); Lymphocytes # (auto) 1.3 10 ^3/uL (0.4-5.4); Mean Corpuscular Hemoglobin 25.9 pg (28.0-32.0); Mean Corpuscular Hgb Conc. 32.4 g/dL (32.0-36.0); Mean Corpuscular Volume 79.9 fL (80.0-100.0); Monocytes % (auto) 5.7 % (0.0-12.0); Neutrophils # (auto) 10.6 10 ^3/uL (1.6-8.6); Neutrophils % (auto) 84.2 % (37.0-80.0); Red Blood Cells 4.96 10^6/uL (4.0-5.20); Red Cell Distribution Width 16.4 % (11.8-14.3); White Blood Cell 12.6 10^3/uL (4.4-10.8)
[2023-08-18 23:07] LABS: Alanine Aminotransferase 47 U/L (7-40); Alkaline Phosphatase 118 U/L (46-116); Calcium 10.2 mg/dL (8.7-10.4); Carbon Dioxide 18 mmol/L (20-30); Chloride 98 mmol/L (98-107); Magnesium 1.8 mg/dL (1.6-2.6)
[2023-08-18 23:08] LABS: Albumin 5.4 g/dL (3.2-4.8); Anion Gap 15 (5-15); Aspartate Aminotransferase 24 U/L (13-40); BUN/Creatinine Ratio 13.1 (10.0-20.0); Blood Urea Nitrogen 13 mg/dL (9-23); Lipase 45 U/L (12-53); Potassium 4.6 mmol/L (3.5-5.1); Sodium 131 mmol/L (136-145); Total Protein 8.5 g/dL (5.7-8.2)
[2023-08-18 23:13] LABS: Glucose 405 mg/dL (74-106)
[2023-08-18 23:30] VITALS: PULSE 112; RESP 22; O2SAT 93
[2023-08-19] MEDS ORDERED: InsuLIN REG 1unit/0.01ml Soln (100units/ml) IV ONE (00:15)
[2023-08-19] MEDS ORDERED: NITROGLYCERIN 0.4 MG SL TAB SL PRN (00:30)
[2023-08-19] MEDS ORDERED: DEXTROSE (50%) 50ML SYRG IV PRN (00:30)
[2023-08-19] MEDS ORDERED: HYDROcodone-ACET 5/325MG TAB PO PRN (00:30)
[2023-08-19] MEDS ORDERED: ACETAMINOPHEN 325 MG TAB PO PRN (00:30)
[2023-08-19] MEDS ORDERED: MORPHINE SULFATE INJ 2 MG/ml SYRG IV PRN (00:30)
[2023-08-19] MEDS ORDERED: TEMAZEPAM 15 MG CAP PO PRN (00:30)
[2023-08-19] MEDS ORDERED: METOCLOPRAMIDE HCL 5MG/ml INJ 2ml VIAL IV ONE (00:30)
[2023-08-19] MEDS: MORPHINE SULFATE INJ 2 MG/ml SYRG IV PRN ×2 (01:15→07:56)
[2023-08-19] MEDS: ONDANSETRON HCL 4 MG/2 ML VIAL IV PRN ×2 (01:15→07:54)
[2023-08-19 02:38] LABS: Lactic Acid w/Reflex 2.6 mmol/L (0.4-2.0)
[2023-08-19] MEDS: SODIUM CHLORIDE 0.9% 1,000 ML IV SCH ×2 (02:51→10:30)
[2023-08-19] MEDS ORDERED: BENAZEPRIL HCL 10 MG TAB PO ONE (03:45)
[2023-08-19] MEDS: ACCU-CHEK COMFORT CURVE STRIP VI SCH ×3 (04:00→12:04)
[2023-08-19] MEDS ORDERED: diphenhdrAMINE HCL 25 MG CAP PO ONE (04:00)
[2023-08-19] MEDS: InsuLIN REG 1unit/0.01ml Soln (100units/ml) SC SCH ×3 (04:08→12:11)
[2023-08-19] MEDS ORDERED: METOCLOPRAMIDE HCL 5MG/ml INJ 2ml VIAL IV SCH (06:00)
[2023-08-19 07:26] VITALS: PULSE 100; RESP 12; O2SAT 99
[2023-08-19 08:30] VITALS: TEMP 97.9
[2023-08-19] MEDS: SERTRALINE HCL 50 MG TAB PO SCH ×2 (10:47→10:52)
[2023-08-19 12:00] VITALS: BP 111/73; PULSE 100; RESP 18; O2SAT 100
== END 2023-08-19 12:15 | disposition home or self-care (01) | DRG 48 ==
LOC: EDBD 19:42 → ER 19:42 → TELE 08-19 00:26
PROVIDERS: ADMIT Internal Medicine Pulmonary Disease; ATTEND Student in an Organized Health Care Education/Training Program
DX: E10.43 Type 1 diabetes mellitus with diabetic autonomic (poly)neuropathy (principal); N17.0 Acute kidney failure with tubular necrosis; E10.10 Type 1 diabetes mellitus with ketoacidosis without coma; K31.84 Gastroparesis; E87.1 Hypo-osmolality and hyponatremia; Z88.8 Allergy status to other drugs, medicaments and biological substances
CPT/HCPCS: 36415; 80053; 81001; 81025; 82010; 82962; 83605; 83690; 83735; 84100; 85025; 99291; G0378; J1815; J2405

== ENCOUNTER 2023-10-10 17:07 | Inpatient (IN) | payer MEDICAID ==
[~2023-10-10] VITALS: Ht 170.2 cm; Wt 65.3 kg
[2023-10-10 18:14] LABS: Urine Epithelial Cast None Seen /hpf (<5)
[2023-10-10 18:25] LABS: Urine Bacteria NONE SEEN /hpf (None Seen); Urine Blood Negative /uL (Negative); Urine Clarity Clear (Clear); Urine Color STRAW (Yellow); Urine Protein, UAD Negative (Negative); Urine Specific Gravity 1.035 (1.001-1.035); Urine Urobilinogen Normal (Negative); Urine WBC 1 /hpf (0 - 5); Urine pH 5.5 (5.0-8.0)
[2023-10-10] MEDS ORDERED: ONDANSETRON HCL 4 MG/2 ML VIAL IV ONE (19:00)
[2023-10-10] MEDS ORDERED: SODIUM CHLORIDE 0.9% 2,000 ML IV ONE (19:00)
[2023-10-10 19:07] LABS: Eosinophils # (auto) 0 10 ^3/uL (0-0.8); Eosinophils % (auto) 0.1 % (0.0-7.0)
[2023-10-10 19:09] LABS: Basophils # (auto) 0 10 ^3/uL (0-0.2); Basophils % (auto) 0.2 % (0.0-2.0); Hematocrit 41.2 % (36.0-46.0); Hemoglobin 13.3 g/dL (12.2-16.2); Lymphocytes # (auto) 1.4 10 ^3/uL (0.4-5.4); Lymphocytes % (auto) 10.5 % (10.0-50.0); Mean Corpuscular Hemoglobin 26.7 pg (28.0-32.0); Mean Corpuscular Hgb Conc. 32.3 g/dL (32.0-36.0); Mean Corpuscular Volume 82.7 fL (80.0-100.0); Monocytes # (auto) 0.5 10 ^3/uL (0-1.3); Monocytes % (auto) 4.1 % (0.0-12.0); Neutrophils # (auto) 11.4 10 ^3/uL (1.6-8.6); Neutrophils % (auto) 85.1 % (37.0-80.0); Nucleated Red Blood Cells % 0.1 %; Red Blood Cells 4.98 10^6/uL (4.0-5.20); Red Cell Distribution Width 16.8 % (11.8-14.3); White Blood Cell 13.4 10^3/uL (4.4-10.8)
[2023-10-10 19:15] LABS: Chloride 99 mmol/L (98-107); Potassium 3.9 mmol/L (3.5-5.1); Sodium 133 mmol/L (136-145)
[2023-10-10] MEDS ORDERED: diphenhdrAMINE HCL 50 MG/1 ML VL IV ONE (19:15)
[2023-10-10] MEDS ORDERED: KETOROLAC TROMETH 30 MG/ML 1ML VIAL IV ONE (19:15)
[2023-10-10 19:16] LABS: Anion Gap 12 (5-15); Calcium 9.7 mg/dL (8.7-10.4); Carbon Dioxide 22 mmol/L (20-30)
[2023-10-10 19:21] LABS: BUN/Creatinine Ratio 9.3 (10.0-20.0); Blood Urea Nitrogen 8 mg/dL (9-23); Glucose 396 mg/dL (74-106)
[2023-10-10 19:26] LABS: Base Excess -1.2 mmol/L (-2.0-2.0)
[2023-10-10 19:29] LABS: Amphetamine Screen, Urine Neg (NEGATIVE); Barbiturate Scree,Urine Neg (NEGATIVE); Benzodiazephine Screen, Urine Neg (NEGATIVE); Cannabinoid Screen, Urine Pos (NEGATIVE); Cocaine Screen, Urine Neg (NEGATIVE); Opiate Scree,Urine Neg (NEGATIVE); Phencyclidine Screen, Urine Neg (NEGATIVE)
[2023-10-10] MEDS ORDERED: InsuLIN REG 1unit/0.01ml Soln (100units/ml) IV ONE (19:30)
[2023-10-10 19:40] VITALS: PULSE 105; RESP 20; O2SAT 98
[2023-10-10 19:49] LABS: Alanine Aminotransferase 43 U/L (7-40); Alkaline Phosphatase 128 U/L (46-116); Anion Gap 13 (5-15); Aspartate Aminotransferase 105 U/L (13-40); BUN/Creatinine Ratio 15.5 (10.0-20.0); Bilirubin, Total 0.8 mg/dL (0.2-1.0); Blood Urea Nitrogen 13 mg/dL (9-23); Calcium 9.5 mg/dL (8.7-10.4); Carbon Dioxide 22 mmol/L (20-30); Chloride 98 mmol/L (98-107); Lipase 42 U/L (12-53); Potassium 3.8 mmol/L (3.5-5.1); Sodium 133 mmol/L (136-145); Total Protein 7.9 g/dL (5.7-8.2)
[2023-10-10 19:56] LABS: Glucose 408 mg/dL (74-106)
[2023-10-10] MEDS ORDERED: IOHEXOL 300 MG/ML 100ML BOTTLE IJ ONE (20:23)
[2023-10-10] MEDS ORDERED: InsuLIN REG 1unit/0.01ml Soln (100units/ml) ONE (20:43)
[2023-10-10] MEDS ORDERED: PROCHLORPERAZINE EDISYLATE 5 MG/ML 2ML VIAL IV ONE (20:45)
[2023-10-10] MEDS ORDERED: LORazepam 2MG/ML-1ML VIAL IV ONE (21:15)
[2023-10-10 23:42] VITALS: PULSE 117; RESP 20; O2SAT 99
[2023-10-11] MEDS ORDERED: LORazepam 0.5 MG TAB PO PRN (01:00)
[2023-10-11] MEDS ORDERED: DOCUSATE SOD 100 MG CAP PO PRN (01:00)
[2023-10-11] MEDS ORDERED: DEXTROSE (50%) 50ML SYRG IV PRN (01:00)
[2023-10-11] MEDS ORDERED: SODIUM CHLORIDE 0.9% 1,000 ML IV SCH (01:00)
[2023-10-11] MEDS ORDERED: MORPHINE SULFATE INJ 2 MG/ml SYRG IV PRN (01:00)
[2023-10-11] MEDS ORDERED: MAALOX PLUS or MAALOX 30 ML PO PRN (01:00)
[2023-10-11] MEDS ORDERED: ACETAMINOPHEN 325 MG TAB PO PRN (01:00)
[2023-10-11] MEDS: metroNIDAZOLE 500MG/100ML 100 ML IV SCH ×3 (02:00→17:59)
[2023-10-11] MEDS: ONDANSETRON HCL 4 MG/2 ML VIAL IV PRN (05:25)
[2023-10-11] MEDS ORDERED: diphenhdrAMINE HCL 50 MG/1 ML VL ONE (05:44)
[2023-10-11] MEDS ORDERED: diphenhdrAMINE HCL 50 MG/1 ML VL IV PRN (05:45)
[2023-10-11] MEDS ORDERED: diphenhdrAMINE HCL 50 MG/1 ML VL IV ONE (05:45)
[2023-10-11] MEDS ORDERED: INSU100I54 SC (06:32)
[2023-10-11] MEDS ORDERED: INSU100I51 SC (06:32)
[2023-10-11] MEDS: InsuLIN REG 1unit/0.01ml Soln (100units/ml) SC SCH ×3 (06:45→17:50)
[2023-10-11 06:50] LABS: Basophils # (auto) 0 10 ^3/uL (0-0.2); Eosinophils # (auto) 0 10 ^3/uL (0-0.8); Mean Corpuscular Hgb Conc. 32.3 g/dL (32.0-36.0)
[2023-10-11 06:52] LABS: Basophils % (auto) 0.2 % (0.0-2.0); Eosinophils % (auto) 0.1 % (0.0-7.0); Hematocrit 36.3 % (36.0-46.0); Hemoglobin 11.7 g/dL (12.2-16.2); Lymphocytes # (auto) 2.4 10 ^3/uL (0.4-5.4); Lymphocytes % (auto) 21.4 % (10.0-50.0); Mean Corpuscular Hemoglobin 26.5 pg (28.0-32.0); Mean Corpuscular Volume 81.9 fL (80.0-100.0); Monocytes % (auto) 9.1 % (0.0-12.0); Neutrophils # (auto) 7.7 10 ^3/uL (1.6-8.6); Neutrophils % (auto) 69.2 % (37.0-80.0); Nucleated Red Blood Cells % 0.1 %; Red Blood Cells 4.43 10^6/uL (4.0-5.20); Red Cell Distribution Width 16.4 % (11.8-14.3); White Blood Cell 11.1 10^3/uL (4.4-10.8)
[2023-10-11] MEDS: HYDROcodone-ACET 5/325MG TAB PO PRN ×2 (06:53→12:01)
[2023-10-11] MEDS: ACCU-CHEK COMFORT CURVE STRIP VI SCH ×4 (07:10→21:30)
[2023-10-11 07:18] LABS: Chloride 100 mmol/L (98-107); Potassium 3.4 mmol/L (3.5-5.1); Sodium 132 mmol/L (136-145)
[2023-10-11 07:19] LABS: Blood Urea Nitrogen 9 mg/dL (9-23); Glucose 270 mg/dL (74-106)
[2023-10-11 07:21] LABS: Anion Gap 13 (5-15); Calcium 8.8 mg/dL (8.7-10.4); Carbon Dioxide 19 mmol/L (20-30)
[2023-10-11 08:00] VITALS: BP 110/70; PULSE 104; RESP 20; TEMP 97.7; O2SAT 95
[2023-10-11] MEDS ORDERED: POTASSIUM EFFERVESENT TAB 25 MEQ PO ONE (09:00)
[2023-10-11] MEDS: METOCLOPRAMIDE HCL 5MG/ml INJ 2ml VIAL IV PRN ×2 (09:17→21:44)
[2023-10-11] MEDS: HYDROmorphone HCL 2 MG/ML VL/or syr IV PRN ×3 (09:21→21:51)
[2023-10-11] MEDS: SODIUM CHLORIDE 0.9% 1,000 ML IV SCH ×3 (09:24→22:50)
[2023-10-11 12:00] VITALS: BP 132/82; PULSE 103; RESP 20; TEMP 98.3; O2SAT 98
[2023-10-11 16:00] VITALS: BP 114/70; PULSE 83; RESP 20; TEMP 98.1; O2SAT 93
[2023-10-11 22:00] VITALS: BP 114/64; PULSE 96; RESP 17; TEMP 98; O2SAT 99
[2023-10-11] MEDS ORDERED: InsuLIN REG 1unit/0.01ml Soln (100units/ml) SC SCH (22:00)
[2023-10-12] MEDS: metroNIDAZOLE 500MG/100ML 100 ML IV SCH ×2 (00:56→09:29)
[2023-10-12] MEDS: HYDROcodone-ACET 5/325MG TAB PO PRN ×3 (00:56→13:27)
[2023-10-12] MEDS: HYDROmorphone HCL 2 MG/ML VL/or syr IV PRN ×2 (03:01→09:32)
[2023-10-12] MEDS: SODIUM CHLORIDE 0.9% 1,000 ML IV SCH ×3 (04:45→18:29)
[2023-10-12 04:58] VITALS: BP 130/83; PULSE 98; RESP 20; TEMP 98.7; O2SAT 88
[2023-10-12] MEDS: ACCU-CHEK COMFORT CURVE STRIP VI SCH ×3 (06:22→17:08)
[2023-10-12] MEDS: InsuLIN REG 1unit/0.01ml Soln (100units/ml) SC SCH ×3 (06:23→17:09)
[2023-10-12 07:29] LABS: Basophils # (auto) 0 10 ^3/uL (0-0.2); Basophils % (auto) 0.3 % (0.0-2.0); Eosinophils # (auto) 0 10 ^3/uL (0-0.8); Eosinophils % (auto) 0.2 % (0.0-7.0); Lymphocytes # (auto) 2.2 10 ^3/uL (0.4-5.4); Red Cell Distribution Width 16.6 % (11.8-14.3); White Blood Cell 7.7 10^3/uL (4.4-10.8)
[2023-10-12 07:31] LABS: Hematocrit 34.6 % (36.0-46.0); Hemoglobin 11.3 g/dL (12.2-16.2); Mean Corpuscular Hemoglobin 26.3 pg (28.0-32.0); Mean Corpuscular Hgb Conc. 32.7 g/dL (32.0-36.0); Mean Corpuscular Volume 80.5 fL (80.0-100.0); Monocytes # (auto) 0.5 10 ^3/uL (0-1.3); Monocytes % (auto) 6.9 % (0.0-12.0); Neutrophils % (auto) 64.6 % (37.0-80.0)
[2023-10-12 07:43] LABS: Chloride 103 mmol/L (98-107); Potassium 3.2 mmol/L (3.5-5.1); Sodium 136 mmol/L (136-145)
[2023-10-12 07:44] LABS: Anion Gap 12 (5-15); Carbon Dioxide 21 mmol/L (20-30)
[2023-10-12 07:45] LABS: Calcium 8.4 mg/dL (8.7-10.4)
[2023-10-12 07:49] LABS: Glucose 166 mg/dL (74-106)
[2023-10-12 07:50] LABS: BUN/Creatinine Ratio 11.9 (10.0-20.0); Blood Urea Nitrogen 7 mg/dL (9-23); Magnesium 1.8 mg/dL (1.6-2.6)
[2023-10-12 09:00] VITALS: BP 131/82; PULSE 91; RESP 20; TEMP 98.1; O2SAT 97
[2023-10-12 13:00] VITALS: BP 132/84; PULSE 94; RESP 17; TEMP 98.3; O2SAT 96
[2023-10-12] MEDS: ONDANSETRON HCL 4 MG/2 ML VIAL IV PRN (13:28)
[2023-10-12] MEDS ORDERED: POTASSIUM EFFERVESENT TAB 25 MEQ PO ONE (13:30)
[2023-10-12] MEDS ORDERED: ZOFR4T PO (13:53)
[2023-10-12 17:00] VITALS: BP 152/82; PULSE 96; RESP 20; TEMP 98.1; O2SAT 97
== END 2023-10-12 20:09 | disposition left against medical advice (07) | DRG 48 ==
LOC: ER 17:07 → EDBD 17:07 → WEST WING 10-11 00:52 → OVERFLOW 10-11 00:52 → WEST WING 10-11 06:23
PROVIDERS: ADMIT Hospitalist; ATTEND Nurse Practitioner Acute Care
DX: E11.43 Type 2 diabetes mellitus with diabetic autonomic (poly)neuropathy (principal); E87.1 Hypo-osmolality and hyponatremia; E11.10 Type 2 diabetes mellitus with ketoacidosis without coma; E87.6 Hypokalemia; K31.84 Gastroparesis; Z53.29 Procedure and treatment not carried out because of patient's decision for other reasons; G89.29 Other chronic pain; Z76.5 Malingerer [conscious simulation]; Z71.6 Tobacco abuse counseling; F12.988 Cannabis use, unspecified with other cannabis-induced disorder
CPT/HCPCS: 36415; 36600; 74176; 80048; 80053; 80307; 81001; 82010; 82805; 82962; 83690; 83735; 84702; 85025; 87086; 96361; 96374; 96375; G0378; J1815; J1885; J2405; J3490